=== PATIENT | male | born 1990 | race Caucasian/White ===

== ENCOUNTER 2021-11-05 17:21 | Emergency (ER) | payer OTHER, SELFPAY ==
[2021-11-05 17:30] VITALS: BP 150/74; PULSE 94; RESP 22; TEMP 37.6; O2SAT 100; BMI 21.6
[2021-11-05 17:52] LABS: UTC Influenza A Antigen Negative (Negative); UTC Influenza B Antigen Negative (Negative)
--- NOTE | 2021-11-05 18:15 | HMH.EDUTC ---
[facility] [place] Clinical Impression: Viral syndrome Disposition: Home, Self-Care Condition on Discharge: Good Instructions: DI for Viral Syndrome, DI for Fever (Symptom) -- Adult Additional Instructions: *Monitor Temp, cool compresses, baths and showers may help to bring down fever, and straight to ER if unable to lower temp less than 101.0 after medication given if you can take them Make sure to drink plenty of cold fluids to help with fever reduction *Sleep elevated *Humidifier/Vaporizer Follow up IMMEDIATELY for new or worsening symptoms or no Noticeable improvement over the next 48-72 hours. 911 for difficulty breathing or swallowing You were tested for today for Upper Respiratory Panel with COVID19 your test result should be back in the next 24-48 hours, you may Check your results on the [facility] My Health Portal Prescriptions: Ondansetron [Zofran 4mg ODT] 4 mg PO TIDP PRN #10 tab PRN Reason: Nausea Transmission Status: Received by [id number] Referrals: Al Lynne MD [Primary Care Provider] - As needed Forms: Work/School Release Time of Disposition: 18:32 Medical Decision Making - Krishna Inquiry Pt receiving controlled substance: No Krishna was queried for this patient: No Vital Signs: 11/05/21 17:30 11/05/21 18:33 Temperature 99.7 F H 99.7 F H Temperature Source Oral Pulse Rate 94 H Pulse Rate [Left Brachial] 94 H Respiratory Rate 22 22 Blood Pressure 150/74 H Blood Pressure [Left Arm] 150/74 H Blood Pressure Mean [Left Arm] 99 Blood Pressure Source [Left Arm] Automatic Cuff Blood Pressure Position [Left Arm] Sitting 02 Sat by Pulse Oximetry 100 Oxygen Delivery Method Room Air - Lab Data Lab results reviewed: Yes: I reviewed the patient's lab results. Lab Results 11/05/21 17:46: Influenza Type A Ag Negative, Influenza Type B Ag Negative Orders (Tests/Meds): ORDERS Category Date Time Status Full Resp Panel w/COVID ([facility]) Routine Lab 11/05/21 18:35 Received [facility] [place] HPI - General Stated complaint: Body aches,fever,MOORE Time Seen by Provider: 11/05/21 18:15 Mode of Arrival: Ambulatory Source of Information: Patient Limitations: No Limitations Description of Symptoms (Recalled from Triage Doc. by RN): PATIENT C/O HEADACHE, BODY ACHES, AND FEVER SINCE YESTERDAY. HE STATES SYMPTOMS STARTED YESTERDAY, BUT HAVE GOTTEN WORSE TODAY HEENT Symptoms (Recalled from RN notes): Yes Resp Symptoms (Recalled from RN notes): No Skin Symptoms (Recalled from RN notes): No MS Symptoms (Recalled from RN notes): No Functional Status (Recalled from RN notes): WNL - History of Present Illness Provider Complaint: Patient states that yesterday out of nowhere he started feeling bad States that he was feeling achy and had a headache States that today he is feeling worse like he has the flu States that he is having fever, chills, body aches, headache and nausea Denies any pain, denies sore throat Denies known exposure to COVID and denies stiff neck but does work in the public - Related Data Previous Rx's Medication Instructions Recorded Ondansetron [Zofran 4mg ODT] 4 mg PO TIDP PRN #10 tab 11/05/21 Allergies Allergy/AdvReac Type Severity Reaction Status Date / Time aspirin [ASPIRIN] Allergy Intermediate I-HIVES Verified 11/08/20 15:38 ibuprofen [From MOTRIN] Allergy Intermediate I-HIVES Verified 11/08/20 15:38 acetaminophen [From Tylenol] Allergy Verified 11/05/21 17:45 - Worker's Comp Is this a Worker's Comp case?: No [facility] History - Hepatitis A Screen Attestation statement:: This patient has been screened for Hepatitis A risk factors. I have reviewed the patient's past medical history: Yes Medical History: Denies:: Cancer, Diabetes Mellitus Type 1, Diabetes Mellitus Type 2, MRSA Other Surgeries: Yes: No Previous Surgery Amputation: No Fractures: Yes - Social History Smoking Status: Former smoker Tobacco Type: cigarettes Alcohol Intake: never
[2021-11-05 18:33] VITALS: BP 150/74; PULSE 94; RESP 22; TEMP 37.6; O2SAT 100
[2021-11-05 18:49] LABS: Adenovirus,PCR Not Detected (NotDetected); Bordetella Pertussis Not Detected (NotDetected); Chlamydophila Pneumoniae, PCR Not Detected (NotDetected); Coronavirus 229E Not Detected (NotDetected); Coronavirus NL63 Not Detected (NotDetected); Coronavirus OC43 Not Detected (NotDetected); Coronovirus HKU1,PCR Not Detected (NotDetected); Human Metapneumovirus Not Detected (NotDetected); Influenza A, PCR Not Detected (NotDetected); Influenza AH1, 2009 Not Detected (NotDetected); Influenza AH1, PCR Not Detected (NotDetected); Influenza AH3,PCR Not Detected (NotDetected); Influenza B, PCR Not Detected (NotDetected); Mycoplasma Pneumoniae, PCR Not Detected (NotDetected); Parainfluenza 1, PCR Not Detected (NotDetected); Parainfluenza 2, PCR Not Detected (NotDetected); Parainfluenza 3, PCR Not Detected (NotDetected); Parainfluenza 4, PCR Not Detected (NotDetected); Respiratory Syncytial Virus Not Detected (NotDetected); Rhinovirus/Enterovirus Not Detected (NotDetected)
[2021-11-05 21:17] LABS: Coronavirus 19, PCR Detected (NotDetected)
== END 2021-11-05 18:40 | disposition home or self-care (01) ==
PROVIDERS: Emergency Provider Nurse Practitioner; PCP Family Medicine
DX: U07.1 COVID-19 (principal); R51.9 Headache, unspecified; M79.10 Myalgia, unspecified site; R50.9 Fever, unspecified
CPT/HCPCS: 87581; 87632; 87798; 87804; 99212; C9803; G0463; U0003; U0005

== ENCOUNTER 2023-03-30 08:03 | Emergency (ER) | payer OTHER, SELFPAY ==
[2023-03-30 08:15] VITALS: BP 164/73; PULSE 63; RESP 20; TEMP 36.9; O2SAT 99; BMI 22.9
--- NOTE | 2023-03-30 08:23 | EXP.UTC ---
Discharge Plan Disposition Patient Disposition: Home, Self-Care Condition: Good Prescriptions Prescriptions: New mupirocin 2 % ointment 1 applic topical TID 7 Days Qty: 15 0RF amoxicillin-pot clavulanate 875-125 mg Tablet 1 tab PO Q12H Qty: 20 0RF Referrals Follow up/Referrals: Al Lynne MD [Primary Care Provider] - See instructions Activity Restrictions/Add. Instructions Additional Instructions/Restrictions: Keep the wounds clean and dry. Follow up with your regular doctor. Take the antibiotics as directed and apply the topical antibiotics as directed. Make sure you stay in contact with the health department regarding the health of the dog and whether you need to start rabies vaccination or not. Watch the wounds for signs of worsening infection, such as worsening redness, drainage, swelling, etc. GO TO THE ER FOR ANY WORSENING SYMPTOMS Clinical Impressions Clinical Impression: Dog bite of face Instructions Patient Instructions: Amoxicillin and Clavulanic Acid, Mupirocin, DI for Dog Bite Discharge ED Provider: Arturo Jorgensen [facility] General Stated complaint: AO 03/29 dog bit face Time Seen by Provider: 03/30/23 08:23 History of Present Illness Provider Complaint: He states that he was bit on the face by a dog yesterday. He states that he has a superficial laceration on his nose and one just below his bottom lip on his chin. He refuses a tdap shot today. He states that he had one in 2018 and that is recent enough for him. He denies any other injury. Related Data Previous Rx's Medication Instructions Recorded amoxicillin 875 mg-potassium 1 tab PO Q12H #20 tabs 03/30/23 clavulanate 125 mg tablet mupirocin 2 % topical ointment 1 applic topical TID 7 days #15 03/30/23 grams Allergies Allergy/AdvReac Type Severity Reaction Status Date / Time aspirin [ASPIRIN] Allergy Intermediate I-HIVES Verified 11/08/20 15:38 ibuprofen [From MOTRIN] Allergy Intermediate I-HIVES Verified 11/08/20 15:38 acetaminophen [From Tylenol] Allergy Verified 11/05/21 17:45 [facility] Disclaimer: The information contained in this section may have been updated after the patient was seen, as this information can be updated by other users. Social History Smoking Status: Former smoker tobacco type: cigarettes alcohol intake: never current occupational status: other Travel in the last 8 weeks: None ROS Obtained: Yes All systems reviewed & no additional complaints except as documented Constitutional Constitutional: Denies chills and Denies fever(s) Eyes Eyes: Denies eye discharge ENT Ears, Nose, Mouth, and Throat: Denies dizziness, Denies otalgia and Denies sore throat Cardiovascular Cardiovascular: Denies chest pain Respiratory Respiratory: Denies shortness of breath, Denies chest congestion, Denies cough, Denies stridor and Denies wheezing Gastrointestinal Gastrointestingal: Denies nausea or vomiting Musculoskeletal Musculoskeletal: Reports system reviewed and no additional complaints, except as documented and Denies arthralgias Integumentary/Breasts Skin/Breast: Reports as per HPI Neurologic Neurologic: Denies dizziness and Denies paresthesias Allergic/Immunologic Allergic/Immunologic: Denies wheezing Physical Exam General General appearance: alert and in no apparent distress Head Head exam: atraumatic, normocephalic and normal inspection Eye Eye exam: Present normal appearance, PERRL and EOMI ENT ENT exam: Present normal exam, normal oropharynx, mucous membranes moist, TM's normal bilaterally and normal external ear exam Neck Neck exam: Present normal inspection, full ROM and trachea midline; Absent meningismus or lymphadenopathy Chest Chest inspection: Present normal inspection and symmetric chest wall rise; Absent tenderness Respiratory Respiratory exam: Present normal lung sounds bilaterally; Absent respiratory distress Cardiovascular Cardiovascular exam: Present
[2023-03-30 08:38] VITALS: BP 164/73; PULSE 63; RESP 20; TEMP 36.9; O2SAT 99
== END 2023-03-30 08:48 | disposition home or self-care (01) ==
PROVIDERS: Emergency Provider Nurse Practitioner Family; PCP Family Medicine
DX: S01.85XA Open bite of other part of head, initial encounter (principal); Z87.891 Personal history of nicotine dependence; W54.0XXA Bitten by dog, initial encounter
CPT/HCPCS: 99212; 99214; G0463